=== PATIENT | female | born 1990 | race African-American/Black ===

== ENCOUNTER → 2017-04-10 | Outpatient (CLI) | payer OTHER ==
[~2017-04-10] MED LIST: AMOXIL875 MG PO; ANTI-DIARRHEAL2 M1 PO; FLEXERIL10 MG PO; LORTAB 5/500 TA1 TA1 PO; NAPROSYN500 MG PO; NO MEDICATIONS; PEPCID PO; PHENERGAN25 MG PO; TAGAMET PO
--- NOTE | ~2017-04-10 | MR17 ---
[facility] A Service of [facility] RADIOLOGY TEXT RESULTS PATIENT: SYED TINAJERO [facility] [birth year] UNIT #: [id number] AGE: [address]: Norberto Nicole II, MD SEX: F ORDER DR: [id number] [facility] [address] [place], [place] [address] [id number] MR#: [id number] Acc #: [id number] NAME: SYED TINAJERO : 1990 SEX: F STUDY DATE/TIME: 04/10/2017 15:05 UNIT: ROOM: STUDY DESCRIPTION: MR Brain WWo Contrast Ordering Physician: Norberto Nicole II., M.D. MRI CENTER REPORT This report is preliminary unless electronic signature is present. EXAM Brain MRI with and without HISTORY Follow-up abnormal MRI. The patient has entire face numbness and tingling since December 2016. Original complaints were right-sided face numbness and right arm numbness which went away and then switched to the entire face per patient. Patient also light-headed with balance difficulty for almost a year. COMMENT MRI of the brain was performed prior to and following intravenous administration of 13 mL of MultiHance. Comparison 12/20/2016 from [facility]. There are redemonstrated multiple areas of white matter signal abnormality most apparent in the left greater than right periatrial white matter where the largest lesion is about 8.0 mm dimension. This is not changed. Mild periventricular white matter signal abnormality is not changed. No extraaxial fluid collection. Ventricles are normal in size and configuration. The major arterial intracranial flow voids are maintained. Mastoid air cells are clear. There is mild paranasal sinus mucosal disease. No abnormally restricted diffusion is seen. No MRI evidence for intracranial hemorrhage. No areas of precontrast T1 low attenuation. No volume loss for age group. Following contrast administration, no pathologic intracranial enhancement. No intracranial mass lesion. IMPRESSION Stable appearance to the brain. Again there is mild white matter signal abnormality most apparent in the left greater than right periatrial white matter. There is no mass effect, pathologic enhancement or restricted diffusion. The white matter changes are nonspecific but given history and age group, consideration would include demyelinating disease such as STS. [facility] A Service of [facility] RADIOLOGY TEXT RESULTS PATIENT: SYED TINAJERO LOCATION: [facility] : 89 UNIT #: [id number] AGE: [address]: Norberto Nicole II, MD SEX: F ORDER DR: multiple sclerosis. Nothing to suggest active demyelination or new plaque. Dictated by... Sirisha Linder M.D. THIS IS AN ELECTRONICALLY VERIFIED REPORT Sirisha Linder M.D. at 04/12/2017 2:49 PM Sebastian TD: 04/11/2017 17:43 JOB #: [id number] MRI CENTER REPORT Page 1 of 1 COPY
== END | disposition home or self-care (01) ==
LOC: CMRI 14:25
DX: R93.0 Abnormal findings on diagnostic imaging of skull and head, not elsewhere classified (principal); R90.82 White matter disease, unspecified
CPT/HCPCS: 70553; A9577